=== PATIENT | female | born 1995 | race African-American/Black ===

== ENCOUNTER 2024-06-14 14:58 | Outpatient (RCR) | payer OTHER, SELFPAY | END 2024-07-30 16:43 | disposition home or self-care (01) | LOC: ANHDMC 14:58 | PROVIDERS: Visit Provider Obstetrics & Gynecology | DX: O24.410 Gestational diabetes mellitus in pregnancy, diet controlled (principal); Z3A.00 Weeks of gestation of pregnancy not specified; Z71.89 Other specified counseling | CPT/HCPCS: G0108 ==

== ENCOUNTER 2024-07-05 11:46 | Inpatient (IN) | payer OTHER, SELFPAY ==
[2024-07-05] VITALS (47 sets, daily range): BP systolic 86–114; BP diastolic 54–83; PULSE 43–93; RESP 16–18; TEMP 36.2–36.6; O2SAT 97–100; BMI 26.4
--- OUTSIDE RECORDS SUMMARY | 2024-07-05 11:59 | XMS_ITS | Data Portability ---
Author Organization [facility] Address [address] [place] [address] Assessment No assessment recorded. Plan of Treatment Reminders Order Date Submit Date Provider Last Modified By Organization Details Last Modified Time Details Appointments None recorde d. Lab None recorde d. Referral None recorde d. Procedures None recorde d. Surgeries None recorde d. Imaging US, obstetr ic, biophys ical profile 2024 025 [email or web address] [facility] [place], [address], [place], [address], 5 20:07:30 US, obstetr ic, biophys ical profile 2024 025 [email or web address] [facility] [place], [address], [place], [address], 5 11:43:28 US, obstetr ic, follow- up 2024 025 ATHENAFAX [facility] [place], [address], [place], [address], 5 11:43:48 US, obstetr ic, 2nd or 3rd trimest er, additio nal gestati on 2024 025 ATHENAFAX [facility] [place], [address], [place], [address], 11:44:26 Medication Orders None recorde d. Patient TargetsNo targets recorded. Patient InstructionsNo instructions recorded. Reason for Referral None Reported. Results Created Date Observation Date Name Description Value Unit Range Abnormal Flag Note LastModifiedBy Organization Detail LastModifiedTime 07/03/19 , obste tric, bioph ysica l profi le No observ ation record ed. [facility] [address], [address], 07/02/2024 20:56:28 07/04/1907/02/2024 , obste tric, bioph ysica l profi le No observ ation record ed. [email or web address] [address], [place], [address], 07/03/2024 13:41:35 07/04/19 , obste tric, bioph ysica l profi le No observ ation record ed. [email or web address] [facility] [address], [address], 07/03/2024 18:43:08 07/06/1907/03/2024 , obste tric, bioph ysica l profi le No observ ation record ed. [email or web address] [address], [place], [address], 07/05/2024 12:07:13 Result Notes None recorded. Problems Name Problem SNOMED Code Status Onset Date Resolution Date Notes Provider Name and Address Organization Details Recorded Time Gestational diabetes mellitus 43408622 Active 2024 Pt reports normal glucose values. Logs reviewed show poor control and diet Judit Concepcion CNM [address] [facility], [place], [address], [facility] [employer] [facility] 17:49:30 Problem Notes None recorded. Procedures Surgical History None recorded. Imaging Results Imaging Date Name Status LastModified by Organiz ation Details LastModified Time 07/02/2024 US, obstetric, biophysical profile completed [facility] [address], [address], 07/02/2024 20:56:28 07/02/2024 US, obstetric, biophysical profile completed [email or web address] [address], [place], [address], 07/03/2024 13:41:35 07/03/2024 US, obstetric, biophysical profile completed [email or web address] [facility] [address], [address], 07/03/2024 18:43:08 07/03/2024 US, obstetric, biophysical profile completed [address], [place], [address], 07/05/2024 12:07:13 Procedure Notes None recorded. Medical Equipment None Reported. Medications Name Sig Start Date Stop Date Status Note LastModified by Organization Details LastModified Time fluconazole 150 mg tablet TAKE 1 TABLET BY MOUTH EVERY DAY DIRECTED active Not Available Not Available No t Available [employer] Lancets 28 gauge USE DIRECTED 4 TIMES DAILY active Not Available Not Available No t Available letrozole 2.5 mg tablet TAKE 1 TABLET BY MOUTH EVERY DAY active Not Available Not Available No t Available [employer] Lite Meter kit active Not Available Not Available Not Available [employer] Lite Strips USE DIRECTED 4 TIMES DAILY active Not Available Not Available No t Available Vitals Date Recorded Body height Body mass index (BMI) Body weight Systolic blood pressure Diastolic blood pressure Provider Name and Address Organization Details Last Updated DateTime 07/02/2024 157.48 cm 28.3 kg/m2 62340.38 g 120 mm[Hg] 60 mm[Hg] [employer] [facility] 20:57:16 Date Recorded Body height Provider Name an d Address Organization Details Last Updated DateTime 07/03/2024 157.48 cm [employer] [facility] [employer] [facility] 07/03/2024 18:49:59 Social History Question Answer Notes LastModified by Organizat ion Details LastModified Time Tobacco Smoking Status Never Smoker Sd Nixon null, [facility] 07/03/2024 18:51:07 What Is Your Level Of Alcohol Consumption? None Information not available 07/03/2024 Are You Blind Or Do You Have Difficulty Seeing? No Information not available 07/03/2024 Are You Deaf Or Do You Have Serious Difficulty Hearing? No Information not available 07/03/2024 What Type Of Diet Are You Following? REGULAR Information not available 07/03/2024 What Is Your Relationship Status? Information not available 07/03/2024 Are You Sexually Active? Yes Information not available 07/03/2024 Do You Use Any Illicit Or Recreational Drugs? No Information not available 07/03/2024 Sex: Unknown Functional Status Question Answer Note LastModified by Organization D etails LastModified Time What is your exercise level? None Information not available 07/03/2024 Mental Status None recorded. Family History Nothing Reported. Medical History No medical history recorded. Gynecological History Statement/Question Response Current Control Method Obstetrics History GPAL:G 1 P 0 0 0 0 Past Encounters Encounter ID Performer Location Encounter Start Date Encounter Closed Date Diagnosis/Indication Diagnosis SNOMED-CT Code Diagnosis ICD10 Code Diagnosis Note [id number] Judit Concepcion CNM [facility] [place] [address] [place] [address] 07/02/2024 18:17:04 07/03/2024 08:32:47 High risk 42251189 O09.90 Pt transfer of care from OB practice @ [facility]. No records available. Pt is 36 wks. Refused GBS collection today. Was scheduled w/prior OB for IOL on 07/16. Would like to Dr Fontaine for delivery - will try to schedule w/Dr Fontaine IOL date will be at MD's discretion . Discussed if Dr Fontaine not available coordinator of evaluation MD will be delivering provider.Hailey freeman [facility] for delivery.A waiting records from [facility]. Gestationa l diabetes mellitus 76142931 O24.615 [id number] Judit Concepcion CNM [facility] [address] [address] 07/03/2024 18:42:02 07/03/2024 20:07:30 ultrasound scan abnormal [id number] 9109 O28.3 Twin B with absent breathing on initial visit yesterday. Repeat BPP today 11/01 Gestation period, 36 weeks 75940028 Z3A.36 Signs of labor include regular contractio ns that increase in strength and do not subside with rest. If the water breaks, whether as a gush or trickle, immediate contact with a provider is necessary. Follow the 5-1-1 rule for contractio ns occurring every five minutes, lasting one minute, for one hour as a cue to seek medical care. Additional ly, decreased movement, defined as fewer than 10 movements in two hours, should be reported promptly. Health Concerns Section Related Observation LastModified by Organization Detai ls LastModified Time None Recorded Concern Status LastModified by Organization Details LastModified Time None Recorded Advance Directives Directive None Recorded Payers Encounter Date Sequence Insurance Name Policy Number Policy Hebert Covered Member ID Hebert Member ID Guarantor Name 07/03/2024 1 [facility] [place] Susan Chen [id number] Susan Chen Notes Date Note Type Note Provider Name and Address Organization Details Recorded Time 07/03/2024 text/html Patient is here today for a routine OB visit. She is currently at {{6 7 8 9 10 11 1 2 13 14 15 16 17 18 19 20 21 22 23 24 25 26 27 28 2 9 30 31 32 33 34 35 36 37 38 39 40 41}} weeks gestation.36.1 vitamins: {{yes* no}} She {{has* has not}} felt movement. She denies any complaints of the presence of vaginal bleed, leaking fluid, abdominal cramps, nausea, vomiting, headache or visual disturbances. Judit Concepcion CNM [address] [place], [address], [facility] [employer] 07/04/2024 17:54:35 OBGyn Episode Ob Episode Information Episode Created Date Number of Fetuses Patient Bloodtype Patient rh Status Prepregnancy Weight lbs Domestic Partner Domestic Partner Phone Father Name Cosmetology Instructor Status 07/03/19 25 2 O Positive OPEN Fetus Data First Name Last Name Admitted to NICU Weight (g) Sex Living Outcome Pediatric Complications Fetus ID Race Codes Race Delivery Type [id number] Problems Problem Notes Problem Name Start Date End Date Resolution Snomed Code Not e Gestational diabetes mellitus 07/03/2024 [id number] Pt reports norm al glucose values.Logs reviewed show poor control and diet Vernon Calculation Initial Vernon Date Initial Exam Date Initial Exam Provider Initial Ultrasound Date Last Menstrual Period Date Ultra Sound Weeks Gestation 07/02/2024 0 Eighteen To Twenty Week Vernon Update Ultra Sound Date Fundal Height At Umbil Quickening Date Ultra Sound Latest Weeks Gestation Final Vernon Confirmed By Final Vernon Confirmed Date Final Vernon Date Ultra Sound Latest Days Gestation 0 [email or web address] 07/03/2024 07/31/19 25 0 Pre-fred Flowsheet Flowsheet Date 07/02/2024 Jameson Score Blood Edema Fundus Height Fundus Units Glucose Ketones Leukocytes Nitrite Labor Signs Protein Cervic Dilation Cervic Effacement Cervic Station Type Weight in lbs Pre/Post Dialysis Refused With clothes 154.474133876674 BP Diastolic BP Location Tested BP Systolic BP Type 60 120 sitting Fetus Heart Rate Present A 133 B 135 Fetus Movement A Yes B Yes Comments OB transfer of care. No christa rds available. BPPs: A: 11/01; B: 09/01 off for breathing but breathing was observed on US. EFW x 2 normal range. F/u tomorrow for repeat BPP. Pt refused GBS today - wants to do it a different day. Flowsheet Date 07/03/2024 Jameson Score Blood Edema Fundus Height Fundus Units Glucose Ketones Leukocytes Nitrite Labor Signs Protein Cervic Dilation Cervic Effacement Cervic Station Type Weight in lbs Pre/Post Dialysis Refused BP Diastolic BP Location Tested BP Systolic BP Type Fetus Heart Rate Present A 131 B 126 Fetus Movement A Yes B Yes Comments Twin B - BPP 11/01. Glucose lo gs reviewed. Inconsistent record. 30% abnormal; no fastings recorded. reviewed dietary choices related to abnormal values. Pt states dietitian said those values were ok. Reviewed reason for late transfer - pt states her previous OB is not available for delivery. Discussed with her and that it is likely that the on-call MD for [facility] will likely be the one to deliver. Primary family doctor sent referral to [facility] earlier this week. Offered appointment for either Monday or Monday w/Dr Schmitt. Pt unsure if she will attend that appointment. Discussed with them that we are happy to care for them but we cannot guarantee a female provider at delivery. Recommended to check with previous provider to re-establish care with them. WILL NEED GBS COLLECETED. Menstrual History Last Menstrual Date Menses Monthly On Bcp Conception Prior Menses Frequency Hcg Plus Date Menarche Onset Age Delivery Information Delivery Date Delivery Type Labor Anesthesia Weeks Gestation Incision Type Labor Labor Length Hrs Delivered By Post Complications Tubal Sterilization Discharge Date Comments Discharge Information Feeding Method Contraceptive Method Maternal HG B and HCT Levels
--- OUTSIDE RECORDS SUMMARY | 2024-07-05 12:00 | XMS_ITS | Continuity of Care Document ---
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 Plan of Treatment Reminders Order Date Submit Date Provider Last Modified By Organization Details Last Modified Time Details Appointments U/S OB BPP 2024 08:00A M ULTRASOUND Not available Not available Not available NST 2024 09:00A M NST SCHEDULE Not available Not available Not available OB ROUTINE 2024 10:30A M Patti Navarro CNM Not available Not available Not available INDUCTI ON 2024 04:00P M Patti Navarro CNM Not available Not available Not available Lab None recorde d. Referral None recorde d. Procedures None recorde d. Surgeries None recorde d. Imaging US, obstetr ic, follow- up 2024 025 [email or web address] [place], [address], [place], [address], 07/05/2024 10:41:39 US, obstetr ic, follow- up 2024 025 [email or web address] [place], [address], [place], [address], 07/05/2024 10:41:39 US, obstetr ic, biophys ical profile 2024 025 [email or web address] [place], [address], [place], [address], 07/05/2024 10:41:39 US, obstetr ic, biophys ical profile 2024 [address], [address], [place], [address], 07/05/2024 10:41:39 US, doppler , umbilic al artery velocim etry 2024 [address], [address], [place], [address], 07/05/2024 10:41:39 Medication Orders None recorde d. Patient TargetsNo targets recorded. Patient InstructionsNo instructions recorded. Reason for Referral None Reported. Results Created Date Observation Date Name Description Value Unit Range Abnormal Flag Note LastModifiedBy Organization Detail LastModifiedTime 01/19/2001/19/2024 US, obste tric, 1st trime ster No observ ation record ed. [facility] [address], [place], [address], 01/19/2024 15:16:15 01/19/2001/19/2024 US, obste tric, nucha l trans lucen cy No observ ation record ed. [email or web address] [address], [place], [address], 01/20/2024 17:54:52 01/19/2001/19/2024 US, obste tric, nucha l trans lucen cy No observ ation record ed. [facility] [address], [place], [address], 01/19/2024 17:39:24 01/19/2001/19/2024 US, obste tric, nucha l trans lucen cy, addit ional gesta tion No observ ation record ed. [facility] [address], [place], [address], 01/19/2024 17:39:35 03/12/20 24 03/12/2024 US, obste tric, 2nd or 3rd trime ster No observ ation record ed. [email or web address] [place] [address], [place], [address], 03/12/2024 17:57:43 03/12/20 24 03/12/2024 US, obste tric, 2nd or 3rd trime ster, addit ional gesta tion No observ ation record ed. [email or web address] [place] [address], [place], [address], 03/12/2024 17:57:52 03/12/20 24 03/12/2024 US, obste tric, 2nd or 3rd trime ster No observ ation record ed. [email or web address] [address], [place], [address], 03/12/2024 21:39:41 03/12/20 24 03/12/2024 US, obste tric, 2nd or 3rd trime ster No observ ation record ed. [email or web address] [address], [place], [address], 03/12/2024 21:39:41 04/12/19 25 04/12/2024 US, obste tric, follo w-up No observ ation record ed. [facility] [address], [place], [address], 04/12/2024 18:01:56 04/12/19 25 04/12/2024 US, obste tric, follo w-up No observ ation record ed. [facility] [address], [place], [address], 04/12/2024 18:02:07 04/12/19 25 04/12/2024 US, obste tric, follo w-up No observ ation record ed. [email or web address] [address], [place], [address], 04/15/2024 09:29:33 05/08/19 25 05/08/2024 US, obste tric, follo w-up No observ ation record ed. [address], [place], [address], 05/08/2024 17:42:31 05/08/19 25 05/08/2024 US, obste tric, follo w-up No observ ation record ed. [address], [place], [address], 05/08/2024 17:42:44 05/08/19 25 05/08/2024 US, obste tric, follo w-up No observ ation record ed. [email or web address] [address], [place], [address], 05/09/2024 00:13:14 06/08/19 25 06/07/2024 US, obste tric, follo w-up No observ ation record ed. [facility] [address], [place], [address], 06/07/2024 17:33:19 06/08/19 25 06/07/2024 US, obste tric, follo w-up No observ ation record ed. [facility] [address], [place], [address], 06/07/2024 17:33:29 06/08/19 25 06/07/2024 US, obste tric, follo w-up No observ ation record ed. [email or web address] [address], [place], [address], 06/09/2024 17:03:42 07/06/1907/05/2024 imagi ng/di agnos tic resul t No observ ation record ed. [email or web address] [address], [place], [address], 07/05/2024 10:29:09 07/06/19 US, obste tric, follo w-up No observ ation record ed. [facility] [address], [place], [address], 07/05/2024 10:28:57 07/06/19 US, obste tric, follo w-up No observ ation record ed. [facility] [address], [place], [address], 07/05/2024 10:29:02 07/06/19 US, obste tric, bioph ysica l profi le No observ ation record ed. [facility] [address], [place], [address], 07/05/2024 10:29:09 07/06/19 US, obste tric, bioph ysica l profi le No observ ation record ed. [facility] [address], [place], [address], 07/05/2024 10:29:13 07/06/19 US, doppl er, umbil ical arter y veloc imetr y No observ ation record ed. [facility] [address], [place], [address], 07/05/2024 10:29:18 Result Notes None recorded. Problems Name Problem SNOMED Code Status Onset Date Resolution Date Notes Provider Name and Address Organization Details Recorded Time 34956488 Active 2023 Bonnie funez [place] - [facility] 10/25/202 4 14:54:14 Dichorioni c diamniotic twin 319366283 Active serial growth testing at 36wks Debo funez, [facility] 5 16:40:39 Dichorioni c diamniotic twin 619154941 Active serial growth testing at 36wks Debo funez, [facility] 5 16:40:39 Gestationa l diabetes mellitus 29462334 Active GDM bs QID , serial growth DT referral faxed to [facility] 06/04 Debo funez, [facility] 5 18:17:34 Gestationa l diabetes mellitus 20665955 Active GDM bs QID , serial growth DT referral faxed to [facility] 06/04 Debo Layne [place], [facility] 5 18:17:34 Problem Notes None recorded. Procedures Surgical History None recorded. Imaging Results Imaging Date Name Status [facility] Details LastModified Time 07/05/2024 US, obstetric, follow-up active [facility] [address], [place], [address], 07/05/2024 10:28:57 07/05/2024 US, obstetric, follow-up active [facility] [address], [place], [address], 07/05/2024 10:29:02 07/05/2024 US, obstetric, biophysical profile active [facility] [address], [place], [address], 07/05/2024 10:29:09 07/05/2024 US, obstetric, biophysical profile active [facility] [address], [place], [address], 07/05/2024 10:29:13 07/05/2024 US, doppler, umbilical artery velocimetry active [facility] [address], [place], [address], 07/05/2024 10:29:18 Procedure Notes None recorded. Medical Equipment None Reported. Allergies No known drug allergies Medications Name Sig Start Date Stop Date Status Note LastModified by Organization Details LastModified Time fluconazole 150 mg tablet TAKE 1 TABLET BY MOUTH EVERY DAY DIRECTED 07/05 completed Not Available Not Available Not Available FreeStyle Lancets 28 gauge USE DIRECTED 4 TIMES DAILY active Not Available Not Available No t Available miconazole nitrate 2 % vaginal cream INSERT 1 APPLICATO RFUL VAGINALLY EVERY NIGHT AT BEDTIME FOR 7 DAYS 05/01 completed Not Available Not Available Not Available letrozole 2.5 mg tablet TAKE 1 TABLET BY MOUTH EVERY DAY 01/19 completed Not Available Not Available Not Available FreeStyle Lite Meter kit active Not Available Not Available Not Available FreeStyle Lite Strips USE DIRECTED 4 TIMES DAILY active Not Available Not Available No t Available Vitals Date Recorded Body weight Body mass index (BMI) Body height Systolic blood pressure Diastolic blood pressure Provider Name and Address Organization Details Last Updated DateTime 07/05/2024 98385.63 261 g 26.3 kg/m2 162.56 cm 122 mm[Hg] 80 mm[Hg] Sheela Escalera [facility] 10:51:36 Social History Question Answer Notes LastModified by Organizat ion Details LastModified Time Tobacco Smoking Status Never Smoker [facility] 07/05/2024 10:52:56 Do You Have An Advance Directive? No [email or web address] Information n ot available 06/21/2024 What Is Your Level Of Alcohol Consumption? None Information not available 01/19/2024 If You Are , What Was Your Level Of Alcohol Consumption Prior To ? Occasional [email or web address] Information not available 07/05/2024 Are You Blind Or Do You Have Difficulty Seeing? No [email or web address] Information n ot available 01/19/2024 What Is Your Level Of Caffeine Consumption? Occasional [email or web address] Information not available 06/08/2024 How Much Tobacco Do You Chew? None [email or web address] Information not available 01/19/2024 In The 14 Days Before Symptom Onset, Have You Had Close Contact With A Laboratory-confirm ed COVID-19 While That Case Was Ill? No Information n ot available 05/01/2023 In The 14 Days Before Symptom Onset, Have You Had Close Contact With A Person Who Is Under Investigation For COVID-19 While That Person Was Ill? No Information not available 05/01/2023 Have You Been To An Area Known To Be High Risk For COVID-19? No Information not available 05/01/2023 Are You Deaf Or Do You Have Serious Difficulty Hearing? No [email or web address] Information not available 01/19/2024 What Type Of Diet Are You Following? REGULAR [email or web address] Information n ot available 01/19/2024 What Is The Highest Grade Or Level Of School You Have Completed Or The Highest Degree You Have Received? [id number] Information not available 01/19/2024 Are There Any Guns Present In Your Home? No [email or web address] Information not available 01/19/2024 Do You Use Protection During Sex? No [email or web address] Information not available 01/19/2024 Do You Use Your Seat Belt Or Car Seat Routinely? Yes [email or web address] Information not available 01/19/2024 Do You Have Smoke And Carbon Monoxide Detectors In Your Home? Yes [email or web address] Information not available 01/19/2024 How Much Tobacco Do You Smoke? No [email or web address] Information not available 01/19/2024 Do You Feel Stressed (tense, Restless, Nervous, Or Anxious, Or Unable To Sleep At Night)? [id number] [email or web address] Information not available 01/19/2024 Do You Use Any Illicit Or Recreational Drugs? No [email or web address] Information not available 01/19/2024 Do You Use Sunscreen Routinely? No [email or web address] Information not available 06/08/2024 Have You Used IV Drugs? No Information not available 01/19/2024 Sex: Unknown Functional Status Question Answer Note LastModified by Organizat ion Details LastModified Time Do you have difficulty walking or climbing stairs? No [email or web address] Information not available 07/05/2024 Are you able to walk? YESWOREST [email or web address] Information not available 01/19/2024 Are you able to care for yourself? Yes [email or web address] Information not available 07/05/2024 Do you have difficulty dressing or bathing? No Information not available 07/05/2024 What is your exercise level? Occasional [email or web address] Information not available 06/08/2024 Mental Status None recorded. Family History Relationship Description Onset Age of this Age Resolved Age Notes LastModified by Organization Details LastModified Time Father No current problems or disability [email or web address] Not available 06/25 10:52:22 Mother No current problems or disability [email or web address] Not available 06/25 10:52:22 Medical History Condition Response Other N Blood Transfusion N Dermatologic Disorders N Gestational Diabetes N Anxiety Disorder N Autoimmune disease N Arthritis N Polyps N Infertility N Acid Reflux (GERD) N Cancer N Varicosities N Stroke N Neurologic/Epilepsy N Fibromyalgia N Headaches N Kidney Disease N Heart Problems N Kidney or Bladder Problems N Eating Disorder N Art (IVF or FET) N Hepatitis/Liver Disease N No Past Medical History Y Urinary Tract Infection N Asthma N Trauma/Violence N Thrombophilias N Allergies (Food, seasonal, environmental ) N Breast Cancer N Drug/Latex Allergies/Reactions N Lung Disease N Defects or Inherited Disease N Breast Problem N Hematologic disorders N Anesthesia Complications N History of STI N Deep Vein Thrombosis N Polycystic ovary syndrome N History of abnormal pap N Endometriosis N High Cholesterol N Thyroid Problems N GI Problems N Anemia N Psychiatric Illness N Ovarian Cancer N Diabetes N Pulmonary (TB, Asthma) N Eczema N Abuse/Domestic Violence N Depression/ depression N Heart Disease N Pre-Eclampsia N Hypertension N Osteoporosis N Gynecological History Statement/Question Response Date of Last Mammogram Date of LMP 10/24/2023 STIs/STDs N Was last menstrual period normal Y HPV Vaccine N Current Control Method Sexually Active? Y Date of Last Pap Smear Sexual Problems? N Desired Control Method None LMP Definite Obstetrics History GPAL:G 2 P 0 0 0 0 Past Encounters Encounter ID Performer Location Encounter Start Date Encounter Closed Date Diagnosis/Indication Diagnosis SNOMED-CT Code Diagnosis ICD10 Code Diagnosis Note [id number] Alise Pitts [place] [address] [address] 06/07/2024 11:34:28 06/10/2024 06:25:30 Dichorionic diamniotic twin 729723185 O30.043 Z3A.28 Z3A.32 [id number] Tong Cleary MD [place] [address],[place] [address] 06/08/2024 11:40:46 06/08/2024 12:20:39 Routine care 242448775 Z34.03 [id number] SACHA AMEZCUA MD [place] [address],[place] [address] 06/21/2024 09:58:30 06/21/2024 10:56:06 Candidiasis of vagina 42289286 B37.31 Dichorioni c diamniotic twin 680441511 O30.049 - discussed risks of twin including increased risk of preeclamps ia, gestationa l diabetes and labor/deli very- continue q4 week growth US Gestation period, 34 weeks 93082907 Z3A.34 [id number] Alise Pitts [place] [address],[place] [address] 07/05/2024 09:20:08 07/05/2024 10:41:39 Dichorionic diamniotic twin 745677384 O30.043 O36.5939 Z3A.36 [id number] Patti Navarro CNM [place] [address],[place] [address] 07/05/2024 09:20:53 07/05/2024 11:25:23 Gestation period, 36 weeks 15067306 Z3A.36 Health Concerns Section Related Observation LastModified by Organization Detai ls LastModified Time None Recorded Concern Status LastModified by Organization Details LastModified Time None Recorded Payers Encounter Date Sequence Insurance Name Policy Number Policy Hebert Covered Member ID Hebert Member ID Guarantor Name 07/05/2024 1 [employer] [facility] Shantanu Chen [id number] Susan Chen OBGyn Episode Ob Episode Information Episode Created Date Number of Fetuses Patient Bloodtype Patient rh Status Prepregnancy Weight lbs Domestic Partner Domestic Partner Phone Father Name Dance Master Status 01/19/20 24 2 O Positive Fabi OPEN Fetus Data First Name Last Name Admitted to NICU Weight (g) Sex Living Outcome Pediatric Complications Fetus ID Race Codes Race Delivery Type [id number] Problems Problem Notes Elevated 1hr gtt. Pt decline d 3hr and is checking BS QID. MK, RN Problem Name Start Date End Date Resolution Snomed Code Not e Dichorionic diamniotic twin 112058266 serial growth testing at 36wks Gestational diabetes mellitus 81931331 GDM bs QID , se rial growthDT referral faxed to [facility] 06/04 Vernon Calculation Initial Vernon Date Initial Exam Date Initial Exam Provider Initial Ultrasound Date Last Menstrual Period Date Ultra Sound Weeks Gestation 07/30/2024 01/19/2024 12/15/2023 10/24/2023 7 Eighteen To Twenty Week Vernon Update Ultra Sound Date Fundal Height At Umbil Quickening Date Ultra Sound Latest Weeks Gestation Final Vernon Confirmed By Final Vernon Confirmed Date Final Vernon Date Ultra Sound Latest Days Gestation 0 01/20/2024 07/31/19 25 0 Pre- Flowsheet Flowsheet Date 01/19/2024 Jameson Score Blood Edema Fundus Height Fundus Units Glucose Ketones Leukocytes Nitrite Labor Signs Protein Cervic Dilation Cervic Effacement Cervic Station Type Weight in lbs Pre/Post Dialysis Refused BP Diastolic BP Location Tested BP Systolic BP Type Fetus Heart Rate Present Fetus Movement Comments Flowsheet Date 01/19/2024 Jameson Score Blood Edema Fundus Height Fundus Units Glucose Ketones Leukocytes Nitrite Labor Signs Protein Cervic Dilation Cervic Effacement Cervic Station Type Weight in lbs Pre/Post Dialysis Refused Weight 129.67097478671 BP Diastolic BP Location Tested BP Systolic BP Type 74 L arm 110 sitting Fetus Heart Rate Present A 158 B 162 Fetus Movement A No Comments Presents to establish prenat al care. complicated by di/di twin gestation after letrozole ovulation induction. NT/NB x2 wnl today. Desires NIPT, will draw today with new OB labs. otherwise uncomplicated. Discussed typical care with di/di twins. Also recommend low dose ASA for preE ppx. RTC 4 weeks. Flowsheet Date 02/16/2024 Jameson Score Blood Edema Fundus Height Fundus Units Glucose Ketones Leukocytes Nitrite Labor Signs Protein Cervic Dilation Cervic Effacement Cervic Station Type Weight in lbs Pre/Post Dialysis Refused BP Diastolic BP Location Tested BP Systolic BP Type Fetus Heart Rate Present Fetus Movement Comments Flowsheet Date 02/16/2024 Jameson Score Blood Edema Fundus Height Fundus Units Glucose Ketones Leukocytes Nitrite Labor Signs Protein Cervic Dilation Cervic Effacement Cervic Station neg none none trace Type Weight in lbs Pre/Post Dialysis Refused 133.841705170535 BP Diastolic BP Location Tested BP Systolic BP Type 69 L arm 110 sitting Fetus Heart Rate Present A 130 B 130 Fetus Movement A No B No Comments Patient reports left sided s ciatica pain. Has tried stretching, will start pelvic floor PT, order sent. Mild heartburn, discussed tums and pepcid. Discussed anatomy US for next visit. RTC 4 weeks. Flowsheet Date 03/12/2024 Jameson Score Blood Edema Fundus Height Fundus Units Glucose Ketones Leukocytes Nitrite Labor Signs Protein Cervic Dilation Cervic Effacement Cervic Station Type Weight in lbs Pre/Post Dialysis Refused BP Diastolic BP Location Tested BP Systolic BP Type Fetus Heart Rate Present Fetus Movement Comments Flowsheet Date 03/12/2024 Jameson Score Blood Edema Fundus Height Fundus Units Glucose Ketones Leukocytes Nitrite Labor Signs Protein Cervic Dilation Cervic Effacement Cervic Station Type Weight in lbs Pre/Post Dialysis Refused 139.186583134777 BP Diastolic BP Location Tested BP Systolic BP Type 69 L arm 104 sitting Fetus Heart Rate Present A Present B Present Fetus Movement A Yes B Yes Comments Doing well, good movem ent x2. Sciatic pain resolved. Anatomy complete for baby B, need CSP for baby A. EFW 41%/36%; normal fluid. Continue q4 week growth US and repeat anatomy at 24 weeks for baby A. Discussed goal of 38 week delivery for di di twins. RTC 4 weeks. Flowsheet Date 04/12/2024 Jameson Score Blood Edema Fundus Height Fundus Units Glucose Ketones Leukocytes Nitrite Labor Signs Protein Cervic Dilation Cervic Effacement Cervic Station Type Weight in lbs Pre/Post Dialysis Refused BP Diastolic BP Location Tested BP Systolic BP Type Fetus Heart Rate Present Fetus Movement Comments Flowsheet Date 04/12/2024 Jameson Score Blood Edema Fundus Height Fundus Units Glucose Ketones Leukocytes Nitrite Labor Signs Protein Cervic Dilation Cervic Effacement Cervic Station neg none Type Weight in lbs Pre/Post Dialysis Refused 145.3107963718 BP Diastolic BP Location Tested BP Systolic BP Type 74 L arm 111 sitting Fetus Heart Rate Present A Present B Present Fetus Movement A Yes B Yes Comments Good movement x2. No c ramping or bleeding. EFW 25%/50%; breech/transverse. Normal anatomy x2. Discussed continued growth US q4 weeks. Discussed GCT and labs for next visit. RTC 4 weeks. Flowsheet Date 05/08/2024 Jameson Score Blood Edema Fundus Height Fundus Units Glucose Ketones Leukocytes Nitrite Labor Signs Protein Cervic Dilation Cervic Effacement Cervic Station Type Weight in lbs Pre/Post Dialysis Refused BP Diastolic BP Location Tested BP Systolic BP Type Fetus Heart Rate Present Fetus Movement Comments Flowsheet Date 05/08/2024 Jameson Score Blood Edema Fundus Height Fundus Units Glucose Ketones Leukocytes Nitrite Labor Signs Protein Cervic Dilation Cervic Effacement Cervic Station Type Weight in lbs Pre/Post Dialysis Refused 151.541710429367 BP Diastolic BP Location Tested BP Systolic BP Type 82 R arm 135 sitting Fetus Heart Rate Present A Present B Present Fetus Movement A Yes B Yes Comments Good movement. No cram ping or bleeding. GCT and labs today. Growth US with EFW 25%/52%, 10% discordance. Presentation cephalic/transverse. Discussed labor vs PCS, patient unsure. Would like to avoid with c section for baby B at all costs. Discussed tdap vaccine. RTC 2 weeks. Flowsheet Date 05/24/2024 Jameson Score Blood Edema Fundus Height Fundus Units Glucose Ketones Leukocytes Nitrite Labor Signs Protein Cervic Dilation Cervic Effacement Cervic Station neg none Type Weight in lbs Pre/Post Dialysis Refused 153.301602539179 BP Diastolic BP Location Tested BP Systolic BP Type 71 L arm 106 sitting Fetus Heart Rate Present A 150 B 150 Fetus Movement A Yes B Yes Comments Doing well, babies both acti ve. Some rare BH contractions. No bleeding. Blood sugars overall normal, forgot log. Will send through portal. Repeat growth US next visit. RTC 2 weeks. Flowsheet Date 06/07/2024 Jameson Score Blood Edema Fundus Height Fundus Units Glucose Ketones Leukocytes Nitrite Labor Signs Protein Cervic Dilation Cervic Effacement Cervic Station Type Weight in lbs Pre/Post Dialysis Refused BP Diastolic BP Location Tested BP Systolic BP Type Fetus Heart Rate Present Fetus Movement Comments Flowsheet Date 06/08/2024 Jameson Score Blood Edema Fundus Height Fundus Units Glucose Ketones Leukocytes Nitrite Labor Signs Protein Cervic Dilation Cervic Effacement Cervic Station neg none 144 cm none Type Weight in lbs Pre/Post Dialysis Refused Weight 157.136119020459 BP Diastolic BP Location Tested BP Systolic BP Type 77 L arm 115 sitting Fetus Heart Rate Present Fetus Movement A Yes B Yes Comments patient stated no swelling/p ain she has been feeling both babies move, Poorly controlled blood sugars, post prandials are elevated. She was given some tips on limiting carbohydrates. She is to have diabetic teaching this week. Flowsheet Date 06/21/2024 Jameson Score Blood Edema Fundus Height Fundus Units Glucose Ketones Leukocytes Nitrite Labor Signs Protein Cervic Dilation Cervic Effacement Cervic Station none Type Weight in lbs Pre/Post Dialysis Refused Weight 153.671203355417 BP Diastolic BP Location Tested BP Systolic BP Type 75 L arm 121 sitting Fetus Heart Rate Present A 135 B 140 Fetus Movement A Yes B Yes Comments patient stated slight braxto n burk no swelling or nausea. Had diabetic diet teaching, postprandials improved. Does not need to start insulin at this time. Will schedule MIL on 07/16. Will repeat growth in 2 weeks. Rebecca symptoms, will send diflucan. RTC 2 weeks. Flowsheet Date 07/05/2024 Jameson Score Blood Edema Fundus Height Fundus Units Glucose Ketones Leukocytes Nitrite Labor Signs Protein Cervic Dilation Cervic Effacement Cervic Station Type Weight in lbs Pre/Post Dialysis Refused BP Diastolic BP Location Tested BP Systolic BP Type Fetus Heart Rate Present Fetus Movement Comments Flowsheet Date 07/05/2024 Jameson Score Blood Edema Fundus Height Fundus Units Glucose Ketones Leukocytes Nitrite Labor Signs Protein Cervic Dilation Cervic Effacement Cervic Station Type Weight in lbs Pre/Post Dialysis Refused BP Diastolic BP Location Tested BP Systolic BP Type Fetus Heart Rate Present Fetus Movement Comments Flowsheet Date 07/05/2024 Jameson Score Blood Edema Fundus Height Fundus Units Glucose Ketones Leukocytes Nitrite Labor Signs Protein Cervic Dilation Cervic Effacement Cervic Station Type Weight in lbs Pre/Post Dialysis Refused 153.956099622535 BP Diastolic BP Location Tested BP Systolic BP Type 80 122 Fetus Heart Rate Present Fetus Movement A Yes B Yes Comments Patient states that having s ome pain. reviewed US <1% growth baby b reviewed with DR Cleary, plan delivery Menstrual History Last Menstrual Date Menses Monthly On Bcp Conception Prior Menses Frequency Hcg Plus Date Menarche Onset Age 0710/24/2023 Delivery Information Delivery Date Delivery Type Labor Anesthesia Weeks Gestation Incision Type Labor Labor Length Hrs Delivered By Post Complications Tubal Sterilization Discharge Date Comments Discharge Information Feeding Method Contraceptive Method Maternal HG B and HCT Levels
--- OUTSIDE RECORDS SUMMARY | 2024-07-05 12:00 | XMS_ITS | Continuity of Care Document ---
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 Discussed plan. Not available 07/05/2024 11:24:05 Plan of Treatment Reminders Order Date Submit [...] recorde d. Surgeries None recorde d. Imaging None recorde d. Medication Orders None recorde d. Patient TargetsNo targets recorded. Patient InstructionsNo instructions recorded. Reason for Referral None Reported. Results Created Date Observation Date Name Description Value Unit Range Abnormal Flag Note LastModifiedBy Organization Detail LastModifiedTime 01/19/20 24 01/19/2024 US, obste tric, 1st trime ster No observ ation record ed. marlena Grace [address], [place], [address], 01/19/2024 15:16:15 01/19/2001/19/2024 US, obste tric, nucha l trans lucen cy No observ ation record ed. [email or web address] [facility] [address], [place], [address], 01/20/2024 17:54:52 01/19/2001/19/2024 US, obste tric, nucha l trans lucen cy No observ ation record ed. [facility] [address], [place], [address], 01/19/2024 17:39:24 01/19/2001/19/2024 US, obste tric, nucha l trans lucen cy, addit ional gesta tion No observ ation record ed. [facility] [address], [place], [address], 01/19/2024 17:39:35 03/12/20 24 03/12/2024 US, obste tric, 2nd or 3rd trime ster No observ ation record ed. [email or web address] [facility] [address], [place], [address], 03/12/2024 17:57:43 03/12/20 24 03/12/2024 US, obste tric, 2nd or 3rd trime ster, addit ional gesta tion No observ ation record ed. [email or web address] [facility] [address], [place], [address], 03/12/2024 17:57:52 03/12/20 24 03/12/2024 US, obste tric, 2nd or 3rd trime ster No observ ation record ed. [email or web address] [facility] [address], [place], [address], 03/12/2024 21:39:41 03/12/20 24 03/12/2024 US, obste tric, 2nd or 3rd trime ster No observ ation record ed. [email or web address] [facility] [address], [place], [address], 03/12/2024 21:39:41 04/12/19 25 04/12/2024 US, obste tric, follo w-up No observ ation record ed. [facility] [address], [place], [address], 04/12/2024 18:01:56 04/12/19 25 04/12/2024 US, obste tric, follo w-up No observ ation record ed. [facility] [address], [place], [address], 04/12/2024 18:02:07 04/12/19 25 04/12/2024 US, obste tric, follo w-up No observ ation record ed. [email or web address] [facility] [address], [place], [address], 04/15/2024 09:29:33 05/08/19 25 05/08/2024 US, obste tric, follo w-up No observ ation record ed. [email or web address] [facility] [address], [place], [address], 05/08/2024 17:42:31 05/08/19 25 05/08/2024 US, obste tric, follo w-up No observ ation record ed. [email or web address] [facility] [address], [place], [address], 05/08/2024 17:42:44 05/08/19 25 05/08/2024 US, obste tric, follo w-up No observ ation record ed. [facility] [address], [place], [address], 05/09/2024 00:13:14 06/08/19 25 06/07/2024 US, obste tric, follo w-up No observ ation record ed. [facility] [address], [place], [address], 06/07/2024 17:33:19 06/08/19 25 06/07/2024 US, obste tric, follo w-up No observ ation record ed. [facility] [address], [place], [address], 06/07/2024 17:33:29 06/08/19 25 06/07/2024 US, obste tric, follo w-up No observ ation record ed. [email or web address] [facility] [address], [place], [address], 06/09/2024 17:03:42 07/06/19 25 07/05/2024 imagi ng/di agnos tic resul t No observ ation record ed. [email or web address] [address], [place], [address], 07/05/2024 10:29:09 07/06/19 25 US, obste tric, follo w-up No observ ation record ed. [facility] [address], [place], [address], 07/05/2024 10:28:57 07/06/19 US, obste tric, follo w-up No observ ation record ed. [facility] [address], [place], [address], 07/05/2024 10:29:02 07/06/19 25 US, mark tric, bioph ysica l profi le No observ ation record ed. [facility] [address], [place], [address], 07/05/2024 10:29:09 07/06/19 25 US, obste tric, bioph ysica l profi le No observ ation record ed. [facility] [address], [place], [address], 07/05/2024 10:29:13 07/06/19 25 US, doppl er, umbil ical arter y veloc imetr y No observ ation record ed. [facility] [address], [place], [address], 07/05/2024 10:29:18 Result Notes None recorded. Problems Name Problem SNOMED Code Status Onset Date Resolution Date Notes Provider Name and Address Organization Details Recorded Time 45643336 Active 2023 Bonnie Meza [facility] 4 14:54:14 Dichorioni c diamniotic twin 261040465 Active serial growth testing at 36wks [facility] 5 16:40:39 Dichorioni c diamniotic twin 069971969 Active serial growth testing at 36wks [facility] 5 16:40:39 Gestationa l diabetes mellitus 02672501 Active GDM bs QID , serial growth DT referral faxed to [facility] 06/04 [facility] 5 18:17:34 Gestationa l diabetes mellitus 61202857 Active GDM bs QID , serial growth DT referral faxed to [facility] 06/04 [facility] 5 18:17:34 Problem Notes None recorded. Medical Equipment None Reported. [...] Address Organization Details Last Updated DateTime 07/05/2024 67210.63 261 g 26.3 kg/m2 162.56 cm 122 mm[Hg] 80 mm[Hg] Sheela Escalera [facility] 10:51:36 Social History Question Answer Notes LastModified by Organizat ion Details LastModified Time Tobacco Smoking Status Never Smoker Sheela Escalera [facility] 07/05/2024 10:52:56 Do You Have An Advance Directive? No [email or web address] Information n ot available 06/21/2024 What Is Your Level Of Alcohol Consumption? None [email or web address] Information not available 01/19/2024 If You Are , What Was Your Level Of Alcohol Consumption Prior To ? Occasional [email or web address] Information not available 07/05/2024 Are You Blind Or Do You Have Difficulty Seeing? No [email or web address] Information n ot available 01/19/2024 What Is Your Level Of Caffeine Consumption? Occasional Information not available 06/08/2024 How Much Tobacco Do You Chew? None Information not available 01/19/2024 In The 14 [...] Serious Difficulty Hearing? No Information not available 01/19/2024 What Type Of Diet Are You Following? REGULAR Information n ot available 01/19/2024 What Is The Highest Grade Or Level Of School You Have Completed Or The Highest Degree You Have Received? CC52897-2 [email or web address] Information not available 01/19/2024 Are There Any Guns Present In Your Home? No [email or web address] Information not available 01/19/2024 Do You Use Protection During Sex? No [email or web address] Information not available 01/19/2024 Do You Use Your Seat Belt Or Car Seat Routinely? Yes Information not available 01/19/2024 Do You Have Smoke And Carbon Monoxide Detectors In Your Home? Yes [email or web address] Information not available 01/19/2024 How Much Tobacco Do You Smoke? No Information not available 01/19/2024 Do You Feel Stressed (tense, Restless, Nervous, Or Anxious, Or Unable To Sleep At Night)? [id number] [email or web address] Information not available 01/19/2024 Do You Use Any Illicit Or Recreational Drugs? No [email or web address] Information not available 01/19/2024 Do You Use Sunscreen Routinely? No [email or web address] Information not available 06/08/2024 Have You Used IV Drugs? No [email or web address] Information not available 01/19/2024 Sex: Unknown Functional Status Question Answer Note LastModified by Organizat ion Details LastModified Time Do you have difficulty walking or climbing stairs? No [email or web address] Information not available 07/05/2024 Are you able to walk? YESWOREST [email or web address] Information not available 01/19/2024 Are you able to care for yourself? Yes [email or web address] Information not available 07/05/2024 Do you have difficulty dressing or bathing? No [email or web address] Information not available 07/05/2024 What is your exercise level? Occasional [email or web address] Information not available 06/08/2024 Mental Status None recorded. Family History Relationship Description Onset Age of this Age Resolved Age Notes LastModified by Organization Details LastModified Time Father No current problems or disability [email or web address] Not available 06/25 10:52:22 Mother No current problems or disability [email or web address] Not available 06/25 10:52:22 Medical History Condition Response Allergies (Food, seasonal, environmental ) N Other N Breast Cancer N Drug/Latex Allergies/Reactions N Blood Transfusion N Dermatologic Disorders N Lung Disease N Defects or Inherited Disease N Breast Problem N Gestational Diabetes N Hematologic disorders N Anesthesia Complications N History of STI N Deep Vein Thrombosis N Polycystic ovary syndrome N Anxiety Disorder N Autoimmune disease N Arthritis N Infertility N Polyps N Acid Reflux (GERD) N History of abnormal pap N Cancer N Stroke N Varicosities N Neurologic/Epilepsy N Endometriosis N High Cholesterol N Headaches N Fibromyalgia N Kidney Disease N Heart Problems N Kidney or Bladder Problems N Thyroid Problems N GI Problems N Eating Disorder N Anemia N Art (IVF or FET) N Psychiatric Illness N Ovarian Cancer N Diabetes N Pulmonary (TB, Asthma) N Hepatitis/Liver Disease N No Past Medical History Y Eczema N Urinary Tract Infection N Abuse/Domestic Violence N Asthma N Trauma/Violence N Depression/ depression N Heart Disease N Pre-Eclampsia N Hypertension N Osteoporosis N Thrombophilias N Gynecological History Statement/Question Response Date of [...] SNOMED-CT Code Diagnosis ICD10 Code Diagnosis Note [id number] [facility] [address] [address] 06/07/2024 11:34:28 06/10/2024 06:25:30 Dichorionic diamniotic twin 656392417 O30.043 Z3A.28 Z3A.32 [id number] Tong Cleary MD [facility] [address] [address] 06/08/2024 11:40:46 06/08/2024 12:20:39 Routine care 252859474 Z34.03 [id number] SACHA AMEZCUA MD [facility] [address],[place] [address] 06/21/2024 09:58:30 06/21/2024 10:56:06 Candidiasis of vagina 07626490 B37.31 Dichorioni c diamniotic twin 244483021 O30.049 - discussed risks of twin including increased risk of preeclamps ia, gestationa l diabetes and labor/deli very- continue q4 week growth US Gestation period, 34 weeks 49408938 Z3A.34 [id number] [facility] [address] [address] 07/05/2024 09:20:08 07/05/2024 10:41:39 Dichorionic diamniotic twin 057248101 O30.043 O36.5939 Z3A.36 [id number] Patti Navarro, [facility] [address] [address] 07/05/2024 09:20:53 07/05/2024 11:25:23 Gestation period, 36 weeks 34594337 Z3A.36 Health Concerns Section Related Observation LastModified by Organization Detai ls LastModified Time None Recorded Concern Status LastModified by Organization Details LastModified Time None Recorded Payers Encounter Date Sequence Insurance Name Policy Number Policy Hebert Covered Member ID Hebert Member ID Guarantor Name 07/05/2024 1 [facility] () Shantanu Chen [id number] Susan Chen OBGyn Episode Ob Episode Information Episode Created Date Number of Fetuses Patient Bloodtype Patient rh Status Prepregnancy Weight lbs Domestic Partner Domestic Partner Phone Father Name Chick Sexer Status 01/19/20 24 2 O Positive Fabi OPEN Fetus Data First Name Last Name Admitted to NICU Weight (g) Sex Living Outcome Pediatric Complications Fetus ID Race Codes Race Delivery Type [id number] Problems Problem Notes Elevated 1hr gtt. Pt decline d 3hr and is checking BS QID. MK, RN Problem Name Start Date End Date Resolution Snomed Code Not e Dichorionic diamniotic twin 772072568 serial growth testing at 36wks Gestational diabetes mellitus 62433606 GDM bs QID , se rial growthDT referral faxed to [facility] 06/04 [place] Calculation Initial [place] Date [...] Weight in lbs Pre/Post Dialysis Refused Weight 129.29709998346 BP Diastolic BP Location Tested BP Systolic [...] Type Weight in lbs Pre/Post Dialysis Refused 133.673318961513 BP Diastolic BP Location Tested BP Systolic [...] Type Weight in lbs Pre/Post Dialysis Refused 139.665812290591 BP Diastolic BP Location Tested BP Systolic [...] Type Weight in lbs Pre/Post Dialysis Refused 145.4102885315 BP Diastolic BP Location Tested BP Systolic [...] Type Weight in lbs Pre/Post Dialysis Refused 151.245508143190 BP Diastolic BP Location Tested BP Systolic [...] Type Weight in lbs Pre/Post Dialysis Refused 153.196598243743 BP Diastolic BP Location Tested BP Systolic [...] Weight in lbs Pre/Post Dialysis Refused Weight 157.400752885836 BP Diastolic BP Location Tested BP Systolic [...] Weight in lbs Pre/Post Dialysis Refused Weight 153.752696683130 BP Diastolic BP Location Tested BP Systolic [...] Type Weight in lbs Pre/Post Dialysis Refused 153.713552845783 BP Diastolic BP Location Tested BP Systolic [...]
--- OUTSIDE RECORDS SUMMARY | 2024-07-05 12:00 | XMS_ITS | Data Portability ---
Author Organization [facility] Address [address] [place] [address] Care Team Providers Care Mortgage Loan Reviewer Name Role Phone [facility] Primary Care Provider Assessment [...] Not available OB ROUTINE 2024 10:30A M FREDY MckeonM Not available Not available Not available INDUCTI ON 2024 04:00P M Patti Navarro CNM Not available Not available Not available Lab None recorde d. Referral None recorde d. Procedures None recorde d. Surgeries None recorde d. Imaging US, obstetr ic, follow- up 2024 025 [facility], [address], [place], [address], 07/05/2024 10:41:39 US, obstetr ic, follow- up 2024 025 [email or web address] [facility], [address], [place], [address], 07/05/2024 10:41:39 US, obstetr ic, biophys ical profile 2024 [address], [address], [place], [address], 07/05/2024 10:41:39 US, obstetr ic, biophys ical profile [address]24 [address], [address], [place], [address], 07/05/2024 10:41:39 US, doppler , umbilic al artery velocim etry 2024 [address], [address], [place], [address], 07/05/2024 10:41:39 Medication Orders Difluca n 150 mg tablet 2024 025 [email or web address] [id number] [address], [place], [id number], 07/05/2024 10:52:32 Patient TargetsNo targets recorded. Patient InstructionsNo instructions recorded. Reason for Referral None Reported. Results Created Date Observation Date Name Description Value Unit Range Abnormal Flag Note LastModifiedBy Organization Detail LastModifiedTime 06/08/1906/07/2024 US, nikhile tric follo w-up No observ ation record ed. [facility] [address], [place], [address], 06/07/2024 17:33:19 06/08/1906/07/2024 US, obstowen tric, follo w-up No observ ation record ed. [facility] [address], [place], [address], 06/07/2024 17:33:29 06/08/19 25 06/07/2024 US, obste tric, follo w-up No observ ation record ed. [email or web address], [place], [address], 06/09/2024 17:03:42 07/06/1907/05/2024 imagi ng/di agnos tic resul t No observ ation record ed. [email or web address], [place], [address], 07/05/2024 10:29:09 07/06/19 US, obste tric, follo w-up No observ ation record ed. [facility] [address], [place], [address], 07/05/2024 10:28:57 07/06/19 US, obste tric, follo w-up No observ ation record ed. [facility] [address], [place], [address], 07/05/2024 10:29:02 07/06/19 , obstowen tric, bioph ysica l profi le No observ ation record ed. [facility] [address], [place], [address], 07/05/2024 10:29:09 07/06/19 , obste tric, bioph ysica l profi le No observ ation record ed. [facility] [address], [place], [address], 07/05/2024 10:29:13 07/06/19 US, doppl er, umbil ical arter y veloc imetr y No observ ation record ed. [facility] [address], [place], [address], 07/05/2024 10:29:18 Result Notes None recorded. Problems Name Problem SNOMED Code Status Onset Date Resolution Date Notes Provider Name and Address Organization Details Recorded Time 40124226 Active 2023 Bonnie Meza [facility], [facility] 4 14:54:14 Dichorioni c diamniotic twin 051216839 Active serial growth testing at 36wks Debo Layne [facility] 5 16:40:39 Dichorioni c diamniotic twin 703455747 Active serial growth testing at 36wks Debo Layne [facility] 5 16:40:39 Gestationa l diabetes mellitus 51026983 Active GDM bs QID , serial growth DT referral faxed to [facility] 06/04 Debojessica Layne [facility] 5 18:17:34 Gestationa l diabetes mellitus 40129997 Active GDM bs QID , serial growth DT referral faxed to [facility] 06/04 Debo [facility] 5 18:17:34 Problem Notes None recorded. Procedures Surgical History None recorded. Imaging Results Imaging Date Name Status LastModified by Organiz ation Details LastModified Time 06/07/2024 US, obstetric, follow-up completed [facility] [address], [place], [address], 06/07/2024 17:33:19 06/07/2024 US, obstetric, follow-up completed [facility] [address], [place], [address], 06/07/2024 17:33:29 06/07/2024 US, obstetric, follow-up completed [email or web address], [place], [address], 06/09/2024 17:03:42 07/05/2024 imaging/diagnos tic result active [email or web address], [place], [address], 07/05/2024 10:29:09 07/05/2024 US, obstetric, follow-up active [facility] [address], [place], [address], 07/05/2024 10:28:57 07/05/2024 US, obstetric, follow-up active [facility] [address], [place], [address], 07/05/2024 10:29:02 07/05/2024 US, obstetric, biophysical profile active [facility] [address], [place], [address], 07/05/2024 10:29:09 07/05/2024 US, obstetric, biophysical profile active [facility] [address], [place], [address], 07/05/2024 10:29:13 07/05/2024 US, doppler, umbilical artery velocimetry active [facility] [address], [place], [address], 07/05/2024 10:29:18 Procedure Notes None recorded. Medical [...] and Address Organization Details Last Updated DateTime 06/08/2024 162.56 cm 26.9 kg/m2 61369 g 115 mm[Hg] 77 mm[Hg] ALEKSANDER [facility] 11:47:39 Date Recorded Body height Body mass index (BMI) Body weight Systolic blood pressure Diastolic blood pressure Provider Name and Address Organization Details Last Updated DateTime 06/21/2024 162.56 cm 26.3 kg/m2 16235.63 g 121 mm[Hg] 75 mm[Hg] [facility] 10:10[facility]06 Date Recorded Body weight Body mass index (BMI) Body height Systolic blood pressure Diastolic blood pressure Provider Name and Address Organization Details Last Updated DateTime 07/05/2024 79011.63 261 g 26.3 kg/m2 162.56 cm 122 mm[Hg] 80 mm[Hg] Sheela Escalera [facility] 10:51:36 Social History Question Answer Notes LastModified by Organizat ion Details LastModified Time Tobacco Smoking Status Never Smoker Sheela Escalera [facility] 07/05/2024 10:52:56 Do You Have An Advance Directive? No [email or web address] Information n ot available 06/21/2024 What Is Your Level Of Alcohol Consumption? None [email or web address] Information not available 01/19/2024 If You Are , What Was Your Level Of Alcohol Consumption Prior To ? Occasional [email or web address] Information not available 07/05/2024 Are You Blind Or Do You Have Difficulty Seeing? No [email or web address] Information n ot available 01/19/2024 What Is Your Level Of Caffeine Consumption? Occasional [email or web address] Information not available 06/08/2024 How Much Tobacco Do You Chew? None [email or web address] Information not available 01/19/2024 In The 14 [...] Do You Have Serious Difficulty Hearing? No [email or web address] Information not available 01/19/2024 What Type Of Diet Are You Following? REGULAR [email or web address] Information n ot available 01/19/2024 What Is The Highest Grade Or Level Of School You Have Completed Or The Highest Degree You Have Received? [id number] Information not available 01/19/2024 Are There Any Guns Present In Your Home? No [email or web address] Information not available 01/19/2024 Do You Use Protection During Sex? No Information not available 01/19/2024 Do You Use Your Seat Belt Or Car Seat Routinely? Yes [email or web address] Information not available 01/19/2024 Do You Have Smoke And Carbon Monoxide Detectors In Your Home? Yes [email or web address] Information not available 01/19/2024 How Much Tobacco Do You Smoke? No Information not available 01/19/2024 Do You Feel Stressed (tense, Restless, Nervous, Or Anxious, Or Unable To Sleep At Night)? [id number] [email or web address] Information not available 01/19/2024 Do You Use Any Illicit Or Recreational Drugs? No [email or web address] Information not available 01/19/2024 Do You Use Sunscreen Routinely? No Information not available 06/08/2024 Have You Used IV Drugs? No Information not available 01/19/2024 Sex: Unknown Functional Status Question Answer Note LastModified by Organizat ion Details LastModified Time Do you have difficulty walking or climbing stairs? No [email or web address] Information not available 07/05/2024 Are you able to walk? YESWOREST [email or web address] Information not available 01/19/2024 Are you able to care for yourself? Yes [email or web address] Information not available 07/05/2024 Do you have difficulty dressing or bathing? No [email or web address] Information not available 07/05/2024 What is your exercise level? Occasional [email or web address] Information not available 06/08/2024 Mental Status None recorded. Family History Relationship Description Onset Age of this Age Resolved Age Notes LastModified by Organization Details LastModified Time Father No current problems or disability Not available 06/25 10:52:22 Mother No current problems or disability [email or web address] Not available 06/25 10:52:22 Medical History Condition [...] SNOMED-CT Code Diagnosis ICD10 Code Diagnosis Note [id number] SACHA AMEZCUA MD [facility] [address] [address] 05/01/2023 13:48:33 05/01/2023 15:41:51 Female infertility 6740965 N97.9 - Differenti al diagnosis of cause of infertilit y includes: male factor vs structural vs anovulator y- We discussed the potential causes of infertilit y and rationale behind testing. We also discussed her reproducti ve potential in the context of her age as well as the risk of aneuploidy .- The patient is asked to complete the following diagnostic work up to include:-- CD3: FSH, estradiol, & AFC-- TSH, A1C, Vitamin D, PRL, LH, 17OHP, AMH-- Transvagin al ultrasound with SIS for endometria l cavity assessment , AFC and repeat for dominant follicle-H usband has completed semen analysis, normal aside from low volume- Discussed the fertile time of the cycle and options for tracking ovulation, including ovulation predictor kits and basal body temperatur e.-- Discussed timed intercours e every other day starting on Day 6 of period through to the next period.-- Discussed using LH surge kits, usually accurate and would recommend intercours e that day and the next day, then can wait until next cycle.-- Discussed ovulation induction would be considered only after behavioral interventi ons were implemente d and after partner completes semen analysis.- Following the return of these test results she is asked to return to the office for further discussion of reproducti ve planning and treatment options- US scheduled 05/22 at beginning of cycle [id number] [facility] [address] [address] 05/22/2023 12:37:24 05/22/2023 13:20:25 Female infertility 9003683 N97.9 [id number] SACHA AMEZCUA MD [facility] [address] [address] 06/02/2023 12:14:36 06/02/2023 14:18:47 Female infertility 7899447 N97.9 - Differenti al diagnosis of cause of infertilit y includes: anovulator y 2/2 PCOS based on AMH and polycystic appearing ovaries-Hu nusrat has completed semen analysis, normal aside from low volume- Discussed ovulation induction with letrozole given suspicion for PCOS/anovu lation. Risks including 5% risk of multiple gestation reviewed with patient- Patient elects to proceed with ovulation induction with her next cycle; patient to call with CD1 [id number] [facility] [address] [address] 12/15/2023 16:03:24 12/15/2023 16:44:46 [id number] SACHA AMEZCUA MD [facility] [address],[place] [address] 12/15/2023 16:03:47 12/15/2023 17:19:01 Dichorionic diamniotic twin 690975821 O30.049 - di/di twin gestation- discussed risks of twin including increased risk of preeclamps ia, gestationa l diabetes and labor/deli very test positive 819864144 Z32.01 1. Exam today within normal limits.2. Ultrasound today confirms GA and viability. EDC . GC/Clamydi a testing done: will f/u as indicated. 4. ACOG guidelines and plan of care for reviewed with patient. All questions answered.5 . Return to office at 12 weeks for new OB visit6. Will need new OB labs at next visit.7. Genetic screening: unsure. [id number] [facility] [address],[place] [address] 01/19/2024 13:55:15 01/22/2024 10:16:49 screening 986770167 Z36.82 O30.049 Z3A.12 [id number] SACHA AMEZCUA MD [facility] [address],[place] [address] 01/19/2024 13:55:31 01/22/2024 10:16:19 Dichorionic diamniotic twin 252063168 O30.049 - di/di twin gestation- discussed risks of twin including increased risk of preeclamps ia, gestationa l diabetes and labor/deli very Gestation period, 12 weeks 02948554 Z3A.12 [id number] SACHA AMEZCUA MD [facility] [address],[place] [address] 02/16/2024 11:38:12 02/16/2024 12:25:34 Dichorionic diamniotic twin 007505417 O30.049 - discussed risks of twin including increased risk of preeclamps ia, gestationa l diabetes and labor/deli very Gestation period, 16 weeks 97338735 Z3A.16 [id number] [facility] [address],[place] [address] 03/12/2024 14:09:39 03/12/2024 15:55:01 Dichorionic diamniotic twin 848116751 O30.042 Z36.3 Z3A.20 [id number] SACHA AMEZCUA MD [facility] [address],[place] [address] 03/12/2024 14:10:07 03/13/2024 09:30:50 Dichorionic diamniotic twin 292357267 O30.049 - discussed risks of twin including increased risk of preeclamps ia, gestationa l diabetes and labor/deli very- continue q4 week growth US Gestation period, 20 weeks 08565438 Z3A.20 - continue PNV [id number] [facility] [address],[place] [address] 04/12/2024 11:01:12 04/12/2024 12:01:24 Dichorionic diamniotic twin 308329890 O30.042 Z36.2 Z3A.24 [id number] SACHA AMEZCUA MD [facility] [address],[place] [address] 04/12/2024 11:01:30 04/15/2024 09:00:50 Dichorionic diamniotic twin 503334776 O30.049 - discussed risks of twin including increased risk of preeclamps ia, gestationa l diabetes and labor/deli very- continue q4 week growth US Gestation period, 24 weeks 077873677 Z3A.24 [id number] [facility] [address],[place] [address] 05/08/2024 15:00:53 05/08/2024 16:51:13 Dichorionic diamniotic twin 294312658 O30.043 Z3A.28 [id number] SACHA AMEZCUA MD [facility] [address],[place] [address] 05/08/2024 15:01:18 05/09/2024 09:40:48 Dichorionic diamniotic twin 779955378 O30.049 - discussed risks of twin including increased risk of preeclamps ia, gestationa l diabetes and labor/deli very- continue q4 week growth US Gestation period, 28 weeks 83113754 Z3A.28 [id number] SACHA AMEZCUA MD [facility] [address],[place] [address] 05/24/2024 14:10:12 05/27/2024 04:21:19 Dichorionic diamniotic twin 714395022 O30.049 - discussed risks of twin including increased risk of preeclamps ia, gestationa l diabetes and labor/deli very- continue q4 week growth US Gestation period, 30 weeks 56472646 Z3A.30 [id number] [facility] [address],[place] [address] 06/07/2024 11:34:28 06/10/2024 06:25:30 Dichorionic diamniotic twin 206385609 O30.043 Z3A.28 Z3A.32 [id number] Tong Cleary MD [facility] [address],[place] [address] 06/08/2024 11:40:46 06/08/2024 12:20:39 Routine care 760791391 Z34.03 [id number] SACHA AMEZCUA MD [facility] [address],[place] [address] 06/21/2024 09:58:30 06/21/2024 10:56:06 Candidiasis of vagina 08638114 B37.31 Dichorioni c diamniotic twin 666216965 O30.049 - discussed risks of twin including increased risk of preeclamps ia, gestationa l diabetes and labor/deli very- continue q4 week growth US Gestation period, 34 weeks 59228694 Z3A.34 [id number] [facility] [address] [place] [address] 07/05/2024 09:20:08 07/05/2024 10:41:39 Dichorionic diamniotic twin 655531082 O30.043 O36.5939 Z3A.36 [id number] [facility] [address] [place] [address] 07/05/2024 09:20:53 07/05/2024 11:25:23 Gestation period, 36 weeks 09929172 Z3A.36 Health Concerns Section Related Observation LastModified by Organization Detai ls LastModified Time None Recorded Concern Status LastModified by Organization Details LastModified Time None Recorded Advance Directives Directive N: Payers Encounter Date Sequence Insurance Name Policy Number Policy Hebert Covered Member ID Hebert Member ID Guarantor Name 06/08/2024 1 [employer] () Shantanu Chen [id number] Susan Chen 06/21/2024 1 [employer] () Shantanu Chen [id number] Susan Chen 07/05/2024 1 [employer] () Shantanu Chen [id number] Susan Chen 07/05/2024 1 [employer] () Shantanu Chen [id number] Susan Chen OBGyn Episode Ob Episode Information Episode Created Date Number of Fetuses Patient Bloodtype Patient rh Status Prepregnancy Weight lbs Domestic Partner Domestic Partner Phone Father Name Money Room Teller Status 01/19/20 24 2 O Positive Fabi OPEN Fetus Data First Name Last Name Admitted to NICU Weight (g) Sex Living Outcome Pediatric Complications Fetus ID Race Codes Race Delivery Type [id number] Problems Problem Notes Elevated 1hr gtt. Pt decline d 3hr and is checking BS QID. MK, RN Problem Name Start Date End Date Resolution Snomed Code Not e Dichorionic diamniotic twin 925072377 serial growth testing at 36wks Gestational diabetes mellitus 40731687 GDM bs QID , se rial growthDT referral faxed to [facility] 06/04 [place] Calculation Initial [place] Date Initial [...] Date Ultra Sound Latest Days Gestation 0 [email or web address] 01/20/2024 07/31/19 25 0 Pre- Flowsheet Flowsheet [...] Weight in lbs Pre/Post Dialysis Refused Weight 129.31675004165 BP Diastolic BP Location Tested BP Systolic [...] Type Weight in lbs Pre/Post Dialysis Refused 133.234618045567 BP Diastolic BP Location Tested BP Systolic [...] Type Weight in lbs Pre/Post Dialysis Refused 139.945296419478 BP Diastolic BP Location Tested BP Systolic [...] Type Weight in lbs Pre/Post Dialysis Refused 145.1264494016 BP Diastolic BP Location Tested BP Systolic [...] Type Weight in lbs Pre/Post Dialysis Refused 151.085049259688 BP Diastolic BP Location Tested BP Systolic [...] Type Weight in lbs Pre/Post Dialysis Refused 153.318392833988 BP Diastolic BP Location Tested BP Systolic [...] Weight in lbs Pre/Post Dialysis Refused Weight 157.456295481971 BP Diastolic BP Location Tested BP Systolic [...] Weight in lbs Pre/Post Dialysis Refused Weight 153.519924959880 BP Diastolic BP Location Tested BP Systolic [...] Type Weight in lbs Pre/Post Dialysis Refused 153.207624848727 BP Diastolic BP Location Tested BP Systolic [...]
--- OUTSIDE RECORDS SUMMARY | 2024-07-05 12:00 | XMS_ITS | Clinical Summary ---
Author Organization [facility] Address [facility] [place] [address] Care Team Providers Care Search Engine Optimization Strategist Name Role Phone Lawanda Medina MD Primary Care Provider [phone] Medications fluconazole (DIFLUCAN) 150 MG tabletIndication s:Yeast infection Take 1 tablet (150 mg total) by mouth daily. 1 tablet 05/03/2023 Active Active Problems Problem Noted Date Diagnosed Date Encounter for preconception consultation 023 Encounters Date Type Department Care Team Description 07/01/2024 Telephone [facility] - [place] [address], [address] [place] [address] Lawanda Medina MD Referral from Last 3 Months Social History Tobacco Use Types Packs/Day Years Used Date Smoking Tobacco: Never Tobacco Cessation:Counseling Given: Not Answered Alcohol Use Standard Drinks/Week Comments Yes 5 (1 standard drink = 0.6 oz pur e alcohol) PHQ-2 Answer Date Recorded Patient Health Questionnaire-2 Score 1 02/21/2023 Comments No Sex and Gender Information Value Date Recorded Sex Assigned at Not on file Legal Sex Female 2:32 PM CDT Gender Identity Not on file Sexual Orientation Not on file Last Filed Vital Signs Vital Sign Reading Time Taken Comments Blood Pressure 118/78 03/13/2023 10:28 AM COLLECTIONS ANALYST Pulse 87 03/13/2023 10:28 AM COLLECTIONS ANALYST Temperature 36.4 C (97.6 F) 03/13/2023 10:28 AM COLLECTIONS ANALYST Respiratory Rate 16 03/13/2023 10:28 AM COLLECTIONS ANALYST Oxygen Saturation 98% 03/13/2023 10:28 AM COLLECTIONS ANALYST Inhaled Oxygen Concentration - - Weight 57.3 kg (126 lb 4.8 oz) 03/13/2023 10:28 AM COLLECTIONS ANALYST Height 160 cm (5' 3 ) 03/13/2023 10:28 AM COLLECTIONS ANALYST Body Mass Index 22.37 03/13/2023 10:28 AM COLLECTIONS ANALYST Plan of Treatment Health Maintenance Due Date Last Done Comments DTaP, Tdap and Td Vaccines ( 1 - Tdap) 2013 Hepatitis B Vaccines (1 of 3 - 19+ 3-dose series) 2013 COVID-19 Vaccine ( - 2023-2 5 season) 2023 Annual Physical 02/22/2024 02/21/2023 PHQ-2 (Physician [place]) 03/27/2024 02/21/2023 Cervical Cancer Screening Pa p Smear (Age 21 to 29) Every 3 Years 12/14/2026 12/15/2023 Cervical Cancer Screening 12/14/2026 Hepatitis C Completed 01/19/2024, 01/19/2024 HPV Vaccines Aged Out No longer eligi ble based on patient's age to complete this topic Meningococcal B Vaccine Aged Out No l onger eligible based on patient's age to complete this topic Meningococcal Vaccine Aged Out No jethro sangeetha eligible based on patient's age to complete this topic Pneumococcal Vaccine: Pediatrics (0 to 5 Years) and At-Risk Patients (6 to 64 Years) Aged Out No longer eligible b ased on patient's age to complete this topic RSV Immunizations Under 20 Months Aged Out No longer eligible b ased on patient's age to complete this topic Insurance Care Teams Search Engine Optimization Strategist Relationship Specialty Start Date End Date Lawanda Medina MD [address] [id number] PCP - General FAMILY PRACTICE 02/21/23
--- NOTE | 2024-07-05 12:04 | P.PNAN_ITS ---
Anes - Initial Pre Proc Eval Procedure: Operation Date: 07/05/24 12:00 Proposed Procedures p Section - Tong Cleary MD Date/Time: 07/05/24 12:04 Surgeon: Tong Cleary MD Pre Op Diagnosis: C/Section Patient Data Age: 28 Gender: F Height: Weight: Allergies Allergy/AdvReac Type Severity Reaction Status Date / Time No Known Allergies Allergy Verified 06/14/24 13:59 Home Medications ?Medication ?Instructions ?Recorded ?Confirmed ?Type aspirin 81 mg capsule 81 mg PO DAILY 06/14/24 06/14/24 History ferrous sulfate 325 mg (65 mg 325 mg PO DAILY 06/14/24 06/14/24 History iron) tablet (Feosol) folic acid 0.8 mg capsule 400 mcg PO DAILY 06/14/24 06/14/24 History vits no.130-ferrous fum 1 tablet PO DAILY 06/14/24 06/14/24 History 27 mg iron-folic acid 800 mcg tablet ( Vitamin) Patient hx anesthesia problems: none Family hx anesthesia problems: none Results Review: All pre-operative results and documents have been reviewed as part of the pre- operative evaluation. PMFSH Family History Family History Other Breast cancer Social History Social History Substance use: never Spiritual care concerns: No Anes - Eval Final PreProcedure Day of Procedure 07/05/24 12:04 Patient weight: overweight Heart: regular rate and rhythm Lungs: clear to auscultation Airway: Mallampati scale class II Neurological: alert and oriented Last oral intake: 2 hours ASA classification: II Emergent: no Anesthetic plan: proceed Anesthesia type and monitoring: regional spinal and standard monitoring Results Review: All pre-operative results and documents have been reviewed as part of the pre- operative evaluation. Informed Consent: The patient's anesthetic plan and its attendant risks and benefits were discussed with the patient/family/POA. Questions were solicited and answers provided to the satisfaction of the patient/family/POA.
--- NOTE | 2024-07-05 12:06 | LDADM ---
This patient, Susan Chen, was admitted to Labor/Delivery/Recovery 120 on 07/05/24 at 11:46. Plans for labor, pain management and were discussed with patient. Patient/family oriented to hospital policies and general routines including ID bracelet, bed and alarms, visiting hours, pain management, procedures, bathroom and other care routines, personal items, smoking policy, room service/diet and guest tray routines, security routines, and visiting hours. Patient/Family are encouraged to report perceived risks to care and to ask questions if they do not understand what they are told or what they should do. See OBIX for further documentation.
[2024-07-05 12:30] LABS: Glucose Point of Care 67 mg/dl (65-105)
[2024-07-05 12:37] LABS: Basophils Percent Auto 0.3 % (0.2-1.2); Eosinophils Percent Auto 0.3 % (0-4.4); Hematocrit 41.6 % (37.0-47.0); Hemoglobin 13.5 g/dL (12.0-15.0); Immature Granulocyte Absolute 0.01 K/mm3 (0.00-0.031); Immature Granulocyte Percent A 0.2 % (0-0.5); Immature Platelet Fraction Pct 12.7 % (0.9-11.2); Lymphocytes Absolute Auto 2.06 K/mm3 (0.9-3.2); Lymphocytes Percent Auto 33.2 % (18.3-44.2); Mean Corpuscular HGB Conc 32.5 g/dl (32-36); Mean Corpuscular Hemoglobin 29.2 pg (26-34); Mean Corpuscular Volume 89.8 fl (80-100); Monocytes Absolute Auto 0.5 K/mm3 (0.1-0.6); Monocytes Percent Auto 7.9 % (2.6-8.5); Neutrophils Absolute Auto 3.6 K/mm3 (1.3-6.7); Neutrophils Percent Auto 58.1 % (45.5-73.1); Nucleated Red Blood Cells Perc 0.3 % (0.0-0.2); Red Blood Count 4.63 M/mm3 (4.2-5.4); Red Cell Distribution Width 20.9 % (11.5-14.5); White Blood Count 6.2 K/mm3 (4.5-10.0)
--- NOTE | 2024-07-05 12:38 | PM.IMHP ---
H&P: HPI History of Present Illness Date/Time: 07/05/24 12:38 Chief Complaint: Twin gestation, term Narrative: 28-year-old female with term , twin gestation. Malposition of the 2nd twin. Agreed to perform delivery. There is some growth restriction with the 2nd twin. Patient understands the procedure/surgery. She understands risks, benefits, and alternatives. She has completed the informed consent process and is ready to proceed The patient understands the details of the procedure. The procedure has been explained in detail. She understands the risks. She understands that injuries may occur that result in hospitalization, more surgery, and severe illness. She understands risk of hemorrhage and infection. She denies any chest pain or shortness of breath. She denies any nausea, vomiting, fever, chills. Review of Systems Review of Systems: All systems reviewed & are unremarkable except as noted in HPI and below Constitutional: Constitutional: Denies chills, Denies fatigue, Denies fever(s) and Denies weakness Eyes: Eyes: Denies blurry vision, Denies change in vision, Denies loss of peripheral vision, Denies loss of vision, Denies other visual disturbances and Denies eye pain ENT: Denies vertigo, Denies dizziness, Denies hearing loss, Denies mouth pain, Denies nasal obstruction, Denies neck mass and Denies neck pain Cardiovascular: Cardiovascular: Denies chest pain, Denies diaphoresis, Denies syncope, Denies leg edema and Denies dyspnea Respiratory: Respiratory: Denies chest congestion, Denies cough, Denies hemoptysis, Denies dyspnea and Denies wheezing Gastrointestinal: Gastrointestinal: Denies abdominal pain, Denies constipation, Denies diarrhea, Denies nausea and Denies vomiting Genitourinary: Genitourinary: Denies hematuria, Denies change in libido, Denies nocturia, Denies genital lesions, Denies flank pain and Denies urinary urgency Musculoskeletal: Musculoskeletal: Denies abnormal gait, Denies back pain, Denies myalgias, Denies arthralgias, Denies joint swelling, Denies muscle weakness and Denies neck pain Integumentary/Breasts: Skin/Breast: Denies swelling, Denies breast pain, Denies breast mass, Denies dry skin, Denies nipple discharge, Denies unusual bruising and Denies jaundice Neurologic: Denies Neuro-related abnormal movements, Denies Abnormal speech present, Denies abnormal gait, Denies behavioral changes, Denies confusion, Denies vertigo, Denies dizziness, Denies syncope, Denies loss of vision, Denies memory loss, Denies convulsions and Denies weakness Psychiatric: Psychiatric: Denies abnormal sleep pattern, Denies behavioral changes, Denies change in libido, Denies confusion, Denies depression, Denies anhedonia and Denies memory loss Endocrine: Endocrine: Reports no additional endocrine complaints, Denies change in libido and Denies fatigue Hematologic/Lymphatic: Hematologic/Lymphatic: Reports no additional hematologic/lymphatic complaints Allergic/Immunologic: Allergic/Immunologic: Reports no additional allergic/immunologic complaints and Denies wheezing PMFSH Family History Family History Other Breast cancer Social History Social History Smoking status: Never smoker Substance use: never Do You Feel Safe in your Home?: Yes Lack of Transportation: No Lack of Food: Never True Current Housing: I Have Housing Concerned About Future Housing: No Difficulty Paying Gas/Electric Bills: No Difficulty Paying for Meds: No Currently Unemployed: No Education: Bachelor's Degree Difficulty w/ Childcare or Family Care: No Spiritual care concerns: No Meds Home Medications and Allergies Home Medications ?Medication ?Instructions ?Recorded ?Confirmed ?Type aspirin 81 mg capsule 81 mg PO DAILY 06/14/24 07/05/24 History ferrous sulfate 325 mg (65 mg 325 mg PO DAILY 06/14/24 07/05/24 History iron) tablet (Feosol) folic acid 0.8 mg capsule 400 mcg PO DAILY 06/14/24 07/05/24 History vits no.130-ferrous fum 1 tablet PO DAILY 06/14/24 07/05/24 History 27 mg iron-folic acid 800 mcg tablet ( Vitamin) Allergies Allergy/AdvReac Type Severity Reaction Status Date / Time No Known Allergies Allergy Verified 07/05/24 12:07 Vital Signs Vital Signs - 24 hr 07/05/24 12:08 07/05/24 12:12 07/05/24 12:16 Pulse Rate 93 88 Blood Pressure 113/83 114/73 Oxygen Delivery Room Air Exam Const: General: cooperative, healthy appearing, comfortable and no acute distress Orientation/consciousness: oriented to person, oriented to place and oriented to time HENMT: Head: normal to inspection Ears: external ears normal Face/Nose/Sinus: Normal external nose present and normal facial exam Face and sinus: normal facial exam Eyes: General: appearance normal, both eyes and all related structures Neck: Neck: normal visual inspection, trachea midline and supple Resp: Auscultation: clear to auscultation bilaterally, no crackles, no rales, no rhonchi and no wheezes Cardio: Rate: regular rate Rhythm: regular rhythm Heart sounds: no click, no murmurs and no rubs GI: GI Palp: No abdominal tenderness, No Soft to palpation, No Tenderness to palpation present (GI) and No Palpable mass present Auscultation: normal bowel sounds Skin: General skin exam: normal color and no rashes or lesions noted Neuro: General: oriented to person, oriented to place and oriented to time Extrem: General: normal to inspection, no joint enlargement, no clubbing, cyanosis or edema, no pedal edema and no calf tenderness Psych: Appearance: grossly normal Mental Status: mental status grossly normal Speech and movement: Normal speech and movement present Assessment and Plan Assessment and plan (1) Twin delivery by : Code(s): O30.009 - Twin , unspecified number of placenta and unspecified number of amniotic sacs, unspecified trimester Status: Acute Plan 28-year-old female with term , twin gestation. Malposition of the 2nd twin. Agreed to perform delivery. There is some growth restriction with the 2nd twin. Patient understands the procedure/surgery. She understands risks, benefits, and alternatives. She has completed the informed consent process and is ready to proceed
[2024-07-05 12:41] LABS: Platelet Count Result 102 k/mm3 (150-375)
[2024-07-05] MEDS: ONDANSETRON INJ 4 MG/2 ML VIAL IV PUSH (12:45)
[2024-07-05] MEDS: FAMOTIDINE 20 MG/2 ML VIAL IV PUSH (12:45)
[2024-07-05] MEDS: ceFAZolin 2 GM/D5W 50 ML 2 GM/50 ML BAG IVPB (12:56)
[2024-07-05 13:15] LABS: Syphilis IgG/IgM Antibody Negative (Negative)
[2024-07-05 13:27] LABS: HIV 1/2 Ab P24 Ag Result Negative (Negative)
--- NOTE | 2024-07-05 13:52 | PC.NURSE ---
Dr. Cleary notified of vaginal bleeding and low platelet count. Uterus is firm, 2 below. Orders received.
--- NOTE | 2024-07-05 13:53 | PC.NURSE ---
TXA given per anesthesia.
--- NOTE | 2024-07-05 14:00 | W.PM.OBCSD ---
OB - Delivery Note Procedure Delivery date: 07/05/24 Pre-op diagnosis: Breech Presentation and Other (Twin ) Post-op Diagnosis: Same Procedure Performed: Primary Surgeon: Tong Cleary MD Anesthesia type: Spinal Description of Procedure/Findings: The patient was taken the operating room.? She was prepped and draped in dorsal supine position with a leftward tilt.? This was done after spinal anesthetic was applied.? A low-transverse skin incision was made and carried down till of the fascia with the knife.? The fascial incision was made with the knife.? The fascial incision was extended laterally with Stroud scissors.? The fascia was tented upward superiorly and inferiorly the rectus muscles were dissected off bluntly.? The rectus muscles were the midline.? The preperitoneal fat and peritoneum were dissected open bluntly at the superior aspect of the rectus muscles.? The peritoneal incision was extended superior and inferior with good position of bladder.? The uterine incision was made with a scalpel down to the level of the amniotic cavity.? The amniotic cavity was entered bluntly.? Both infants were delivered without complications. Second was delivered in the breech position..? The cord was clamped and cut for each baby, and the was handed off to waiting pediatric staff.? Cord bloods were obtained.? The placenta was removed manually.? The uterus was exteriorized.? The uterus was cleared of all clots, debris and membranes.? The uterus was closed in 0 Vicryl running lock fashion.? An imbricating over a was placed along the incision line as well.? The uterus was returned to the abdomen.? The gutters were cleared of all clots and debris.? The fascia was closed with 0 Vicryl running fashion.? The subcutaneous tissue was irrigated pinpoint bleeders were cauterized.? The skin was closed with subcuticular absorbable senia.? The skin incision line was covered with glue.? The patient tolerated the procedure well.? She has taken recovery room in stable condition.? Sponge lap and needle counts were correct x2.?
[2024-07-05] MEDS: MORPHINE SULFATE INJ (*CRX) 10 MG/ML AMP 3 MG IV PUSH (15:03)
[2024-07-05] MEDS: OXYTOCIN 30 UNITS/NS 500 ML 30 UNITS/500 ML BAG 125 UNITS IV CONT (15:04)
--- NOTE | 2024-07-05 16:06 | PC.NURSE ---
Dr. Cleary notified. Discussed platelets and toradol use. Orders received to d/c toradol.
[2024-07-05] MEDS: SIMETHICONE 80 MG TAB.CHEW PO (18:49)
[2024-07-05] MEDS: LIDOCAINE 5% PATCH 1 PATCH TRANSDERM (18:49)
[2024-07-05] MEDS: Acetaminophen/HYDROcodone ELIXIR (*CRX) 7.5 MG/15 ML UDC PO (18:50)
[2024-07-05] MEDS: ACETAMINOPHEN ELIXIR 325 MG/10.15 ML UDC 650 MG PO (18:53)
--- NOTE | 2024-07-05 19:00 | PC.NURSE ---
1900- Upon entering room introductions were made and offered to initiate pumping with pt due to separation from infants in level 2 nursery. Pt declined at this time and said she might decide to pump later. Education given that it is encouraged to initiate pumping within 6hrs of delivery to promote milk supply and pt stated she will call for help when she is ready to try pumping.
--- NOTE | 2024-07-05 19:30 | OBPPTRN ---
1640-Patient transferred to post room #277 via stretcher. Support person present. Oriented to unit, room, information board, rooming in, admission packet and security measures. Patient verbalizes understanding.
[2024-07-05] MEDS: DEXTROSE 5%/0.45% SOD CHL 1,000 ML 125 ML IV CONT (19:45)
--- NOTE | 2024-07-05 20:45 | PC.NURSE ---
Assisted pt with setting up her Spectra breast pump per her request. Encouraged pt to pump mirroring infants feeding schedule of every 2-3 hours with a 5hr break at night time to rest in order to promote a milk supply. Pt asked if she can wait a couple days to pump until her milk comes in and encouraged pt that in order to gain a milk supply consistent pumping soon after infants are born is best and pt verbalized understanding. Measured pt for correct flange size and needs a 22-23 flange. Her pump came with both a 24 and a 28mm. Pt stated she will try with the 24 and see how it feels. Education given verbally as well as handouts on cleaning of pump parts and correct storage of expressed milk. Pt denies any further questions at this time and stated she will pump in a little bit when she is feeling more up to it. Encouraged pt to call out with any questions or concerns or if assistance is needed.
[2024-07-06] MEDS: Acetaminophen/HYDROcodone ELIXIR (*CRX) 7.5 MG/15 ML UDC PO ×3 (01:05→19:01)
[2024-07-06] MEDS: ACETAMINOPHEN ELIXIR 325 MG/10.15 ML UDC 650 MG PO ×4 (01:05→19:03)
[2024-07-06 03:30] VITALS: BP 95/51; PULSE 64; RESP 18; TEMP 36.6; O2SAT 99
[2024-07-06] MEDS: IBUPROFEN SUSPENSION 200 MG/10 ML UDC 600 MG PO ×3 (03:30→19:19)
[2024-07-06 04:23] LABS: Basophils Percent Auto 0.3 % (0.2-1.2); Eosinophils Absolute Auto 0.1 K/mm3 (0-0.3); Eosinophils Percent Auto 0.9 % (0-4.4); Hematocrit 34.3 % (37.0-47.0); Immature Granulocyte Absolute 0.02 K/mm3 (0.00-0.031); Immature Granulocyte Percent A 0.3 % (0-0.5); Lymphocytes Absolute Auto 1.39 K/mm3 (0.9-3.2); Lymphocytes Percent Auto 21.8 % (18.3-44.2); Mean Corpuscular HGB Conc 32.1 g/dl (32-36); Mean Corpuscular Hemoglobin 29.3 pg (26-34); Mean Corpuscular Volume 91.5 fl (80-100); Monocytes Absolute Auto 0.4 K/mm3 (0.1-0.6); Monocytes Percent Auto 5.8 % (2.6-8.5); Neutrophils Absolute Auto 4.5 K/mm3 (1.3-6.7); Neutrophils Percent Auto 70.9 % (45.5-73.1); Red Blood Count 3.75 M/mm3 (4.2-5.4); Red Cell Distribution Width 20.5 % (11.5-14.5); White Blood Count 6.4 K/mm3 (4.5-10.0)
[2024-07-06 04:24] LABS: Platelet Count Result 74 k/mm3 (150-375)
[2024-07-06 04:44] LABS: Anisocytosis 1+; Band Neutrophils Percent 0 % (0-6); Macrocytosis 1+ (NORMAL); Ovalocytes 1+; Platelet Estimate Decreased (Adequate); Schistocytes None Seen; Smudge Cells PRESENT
--- NOTE | 2024-07-06 08:00 | WPDANLDPN2 ---
Anes-Prog Note L&D Date/Time: 07/06/24 08:00 Comfortable throughout: section Neuraxial method: spinal Epidural/Spinal procedure site: clean & non-tender Neuro status: Neuro function grossly intact. Cardiovascular status: normal Respiratory status: normal Airway patency: baseline Mental status: baseline Post-Op hydration status: normal Vital Signs: Last Vital Signs Temp 36.6 C 07/06/24 03:30 Pulse 64 07/06/24 03:30 Resp 18 07/06/24 03:30 BP 95/51 L 07/06/24 03:30 Pulse Ox 99 07/06/24 03:30 O2 Del Method Room Air 07/05/24 15:55 Pain score (VAS): 2 I/O: Intake & Output 07/05/24 07/06/24 07/06/24 23:59 07:59 15:59 Intake Total 500 1550 Output Total 550 2750 Balance -50 -1200 Post-procedural complaints: none Patient feedback: Patient satisfied with anesthetic care.
--- NOTE | 2024-07-06 08:01 | WPDANLDNPN2 ---
Anes-Prog Note L&D-Neuraxial Date/Time: 07/06/24 08:01 Neuraxial medications: intrathecal PF morphine Opiod-related complaints: pruritis Patient feedback: Patient satisfied with post-operative pain management.
[2024-07-06 08:15] VITALS: BP 95/59; PULSE 71; RESP 18; TEMP 36.6; O2SAT 100
[2024-07-06] MEDS: SIMETHICONE 80 MG TAB.CHEW PO ×2 (11:26→13:28)
--- NOTE | 2024-07-06 12:30 | PC.NURSE ---
Breast pump provided overnight by RN. Mother was measured for correct flange size by overnight RN as well. Educated mother of importance of pumping consistently to protect milk supply. Instructions given on cleaning, care, usage, that there should be no pain, pumping schedule for milk production, collection, and storage of human milk. Parents are encouraged to record the pumping schedule on the feeding sheet.?Mother voiced understanding of the education shared along with mom/baby guide and the pump measurement, flange fit handout for additional resource information. Reported to the Primary RN.
--- NOTE | 2024-07-06 12:55 | P.PNOB_ITS ---
OB - PN: Subj Subjective Date/time seen: 07/06/24 12:55 Patient comments: no complaints, pain well controlled, tolerating diet and flatus present OB - PN: Obj Data Labs 07/06/24 03:28 Labs: Laboratory Results - last 24 hr 07/05/24 07/06/24 12:17 03:28 WBC 6.4 RBC 3.75 L Hgb 11.0 L Hct 34.3 L MCV 91.5 MCH 29.3 MCHC 32.1 RDW 20.5 H Plt Count 74 L MPV TNP Immature Gran % (Auto) 0.3 Neut % (Auto) 70.9 Lymph % (Auto) 21.8 Webster % (Auto) 5.8 Eos % (Auto) 0.9 Baso % (Auto) 0.3 Lymph # (Auto) 1.39 Webster # (Auto) 0.4 Eos # (Auto) 0.1 Baso # (Auto) 0.0 Abs Immat Gran (auto) 0.02 Absolute Neuts (auto) 4.5 Absolute Nucleated RBC 0.000 Band Neutrophils % 0 Nucleated RBC % 0.0 Smudge Cells Present Platelet Estimate Decreased Anisocytosis 1+ Macrocytosis 1+ Ovalocytes 1+ Schistocytes None seen Syphilis IgG/IgM Ab Negative HIV 1&2 Ab/P24 Ag 4thGn Negative Blood Type O Positive Antibody Screen Negative OB - PN A/P Plan day: 1 Comments: Post Op LTCS - no problems, routine recovery Time Spent With Patient Time: Total time spent is greater than 50% in coordination of care (as documented) at patient's floor/unit and/or counseling patient: Exam 2 Const: General: cooperative, healthy appearing, comfortable and no acute distress Resp: Auscultation: no crackles, no rales, no rhonchi and no wheezes Cardio: Rhythm: regular rhythm Heart sounds: no click and no murmurs GI: Inspection: non-distended Auscultation: normal bowel sounds Extrem: General: normal to inspection, no pedal edema and no calf tenderness
[2024-07-06] MEDS: DOCUSATE SODIUM LIQ 100 MG/10 ML UDC PO (13:28)
[2024-07-06 19:00] VITALS: BP 113/70; PULSE 71; RESP 16; TEMP 36; O2SAT 100
[2024-07-06] MEDS: LIDOCAINE 5% PATCH 1 PATCH TRANSDERM (19:03)
[2024-07-06] MEDS: LANOLIN (LANSINOH) 7.5 GM CREAM 1 APPLIC TOPICAL (19:44)
[2024-07-07] MEDS: ACETAMINOPHEN ELIXIR 325 MG/10.15 ML UDC 650 MG PO ×4 (00:57→20:11)
[2024-07-07] MEDS: IBUPROFEN SUSPENSION 200 MG/10 ML UDC 600 MG PO ×4 (00:57→20:11)
[2024-07-07] MEDS: DOCUSATE SODIUM LIQ 100 MG/10 ML UDC PO ×3 (00:57→20:11)
[2024-07-07 07:40] VITALS: BP 119/83; PULSE 82; RESP 18; TEMP 36.5; O2SAT 100
[2024-07-07] MEDS: SIMETHICONE 80 MG TAB.CHEW PO ×3 (07:41→20:12)
[2024-07-07] MEDS: MULTIVITS W-FE,MIN CHEWABLE TABLET 1 TABLET PO (07:42)
--- NOTE | 2024-07-07 08:33 | P.PNOB_ITS ---
OB - PN: Subj Subjective Date/time seen: 07/07/24 08:33 Patient comments: no complaints, pain well controlled, incisional pain, tolerating diet and flatus present OB - PN: Obj Data Labs 07/06/24 03:28 OB - PN A/P Plan day: 2 Plan: routine care Comments: POD#2 LTCS - no problems, Time Spent With Patient Time: Total time spent is greater than 50% in coordination of care (as documented) at patient's floor/unit and/or counseling patient: Exam 2 Const: General: comfortable, no acute distress and alert Resp: Effort & Inspection: normal respiratory effort Auscultation: no crackles, no rales and no rhonchi Cardio: Rate: regular rate Heart sounds: no click, no murmurs and no rubs GI: Inspection: non-distended Auscultation: normal bowel sounds Other: Incision - CDI Extrem: General: normal to inspection, no pedal edema and no calf tenderness
[2024-07-07] MEDS: Acetaminophen/HYDROcodone ELIXIR (*CRX) 7.5 MG/15 ML UDC PO ×2 (10:50→20:24)
--- NOTE | 2024-07-07 11:00 | PC.NURSE ---
Mother requested assistance with breast pump set to make sure she had it correct. Instructions given on cleaning, care, usage, that there should be no pain, re-educated on pumping schedule for milk production, collection, and storage of human milk. Patient was assessed for correct placement, flange size, to pump for comfort and nipple stretching/stimulation for adequate milk production every 3 hours (8 times in 24 hours) 1-2 times at night. Parents are encouraged to record the pumping schedule on the feeding sheet.?Mother voiced understanding of the education shared along with mom/baby guide and the pump measurement, flange fit handout for additional resource information. Reported to the Primary RN.
[2024-07-07] MEDS: LIDOCAINE 5% PATCH 1 PATCH TRANSDERM (20:14)
[2024-07-07 20:15] VITALS: BP 124/80; PULSE 86; RESP 16; TEMP 36.4; O2SAT 100
[2024-07-08] MEDS: IBUPROFEN SUSPENSION 200 MG/10 ML UDC 600 MG PO ×2 (02:00→08:05)
[2024-07-08] MEDS: ACETAMINOPHEN ELIXIR 325 MG/10.15 ML UDC 650 MG PO ×2 (02:00→08:07)
[2024-07-08 07:50] VITALS: BP 108/74; PULSE 75; RESP 18; TEMP 36.7; O2SAT 98
[2024-07-08] MEDS: MULTIVITS W-FE,MIN CHEWABLE TABLET 1 TABLET PO (08:08)
[2024-07-08] MEDS: SIMETHICONE 80 MG TAB.CHEW PO (08:08)
[2024-07-08] MEDS: DOCUSATE SODIUM LIQ 100 MG/10 ML UDC PO (08:08)
[2024-07-08] MEDS: Acetaminophen/HYDROcodone ELIXIR (*CRX) 7.5 MG/15 ML UDC PO (08:09)
--- NOTE | 2024-07-08 08:11 | P.PNOB_ITS ---
OB - PN: Subj Subjective Date/time seen: 07/08/24 08:11 Patient comments: no complaints, pain well controlled, incisional pain, tolerating diet and flatus present OB - PN: Obj Data Labs 07/06/24 03:28 OB - PN A/P Plan day: 3 Plan: routine care and other Comments: Incision check in one week. Given precautions Time Spent With Patient Time: Total time spent is greater than 50% in coordination of care (as documented) at patient's floor/unit and/or counseling patient: Exam 2 Const: General: comfortable, no acute distress and alert Resp: Effort & Inspection: normal respiratory effort Auscultation: no crackles, no rales and no rhonchi Cardio: Rate: regular rate Heart sounds: no click, no murmurs and no rubs GI: Inspection: non-distended GI Palp: No Tenderness to palpation present (GI) Auscultation: normal bowel sounds Other: Incision - CDI Extrem: General: normal to inspection, no pedal edema and no calf tenderness
--- NOTE | 2024-07-08 10:30 | PC.NURSE ---
Consulted with mother concerning needs and she shared her ability to independently pump without pain. Both twins will be at [facility] NICU as of today. Discussed the importance of pumping 8x every 24 hours and ensuring there are clean pump pieces at each session. Mom states washing parts is the biggest barrier to her being consistent with pumping because it is a lot of work for her to clean everything if she doesn't have a support person here to help. Reinforced understanding of milk production, transition of milk, community resources, and when to call a provider using the resource of the feeding sheet along with the mom and baby guide. She has a Spectra and a Mom Cozy pump. Mother is encouraged to seek assistance from at [facility] and that they may have specific requirements for pumped milk and sanitizing pump parts. Mother voiced understanding of the information shared, is confident to continue effectively pumping at home, when to call for assistance, denies any additional assistance or education at this time. Reported to the Primary RN.
--- NOTE | 2024-07-08 10:55 | PC.NURSE ---
Dr. Cleary notified that baby is getting transferred and that mother would like to go home. Orders received that patient may be discharged to home. Dr. Cleary will transfer her medications to the pharmacy from the office.
== END 2024-07-08 13:08 | disposition home or self-care (01) | DRG 788 ==
LOC: ANHLDR 12:04 → ANHOB2 16:42
PROVIDERS: Admitting Provider Obstetrics & Gynecology; Visit Provider Obstetrics & Gynecology
PROC: 10D00Z1 Extraction of Products of Conception, Low, Open Approach (ICD-10-PCS; CPT 59514; principal; 2024-07-05 12:00)
DX: O24.429 Gestational diabetes mellitus in childbirth, unspecified control (principal); O32.9XX2 Maternal care for malpresentation of fetus, unspecified, fetus 2; O36.5932 Maternal care for other known or suspected poor fetal growth, third trimester, fetus 2; O69.82X2 Labor and delivery complicated by other cord entanglement, without compression, fetus 2; O30.003 Twin pregnancy, unspecified number of placenta and unspecified number of amniotic sacs, third trimester; Z3A.36 36 weeks gestation of pregnancy; Z37.2 Twins, both liveborn
CPT/HCPCS: 36415; 82948; 85025; 85055; 86593; 86703; 86850; 86900; 86901; 88307; A9270; G0432; J0690; J2270; J2274; J2371; J2405; J2590